=== PATIENT | male | born 2000 | race Caucasian/White ===

== ENCOUNTER 2020-03-13 16:51 | Outpatient (REF) | payer OTHER, SELFPAY | END 2020-03-13 16:52 | disposition home or self-care (01) | LOC: HO.LAB 16:51 | PROVIDERS: Visit Provider Internal Medicine | DX: Z20.828 Contact with and (suspected) exposure to other viral communicable diseases (principal) | CPT/HCPCS: C9803; U0003 ==

== ENCOUNTER 2020-03-26 14:17 | Outpatient (REF) | payer OTHER, SELFPAY | END 2020-03-26 14:18 | disposition home or self-care (01) | LOC: HO.LAB 14:17 | PROVIDERS: PCP Internal Medicine; Visit Provider Internal Medicine | DX: Z20.828 Contact with and (suspected) exposure to other viral communicable diseases (principal) | CPT/HCPCS: C9803; U0003 ==

== ENCOUNTER 2020-08-05 12:53 | Emergency (ER) | payer OTHER, SELFPAY ==
--- NOTE | 2020-08-05 | ECG_ITS ---
Test Reason : RAPID HEARTBEAT Blood Pressure : / mmHG Vent. Rate : 076 BPM Atrial Rate : 076 BPM P-R Int : 126 ms QRS Dur : 082 ms QT Int : 374 ms P-R-T Axes : 012 058 020 degrees QTc Int : 420 ms Sinus rhythm with marked sinus arrhythmia Otherwise normal ECG No previous ECGs available Referred By: Amilcar Henderson Electronically Signed By:GINGER PIERRE MD
--- NOTE | ~2020-08-05 | XR_ITS ---
EXAMINATION: XR CHEST CLINICAL INFORMATION: Chest pain. COMPARISON: None TECHNIQUE: Frontal view of the chest was obtained. FINDINGS: No significant abnormality is noted involving the heart, lungs, mediastinum, bony thorax or soft tissues. XR/XR chest 1V IMPRESSION: Unremarkable chest examination.
[2020-08-05 12:54] VITALS: BP 180/83; PULSE 85; RESP 18; TEMP 36.9; O2SAT 98; BMI 34.1
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
[2020-08-05 16:07] LABS: MANUAL DIFF FLAG NO
[2020-08-05 16:09] LABS: Basophils Percent Auto 0.3 % (0-2); Eosinophils Percent Auto 0.2 % (0-4); Hematocrit 41.1 % (42-52); Hemoglobin 14.7 g/dl (14.0-18.0); Imm Gran Abs Auto 0.04 X10*3/uL (0.00-0.03); Imm Gran Pct Auto 0.4 % (0.0-0.4); Lymphocytes Absolute Auto 2.4 X10*3/uL (1.2-4.9); Lymphocytes Percent Auto 23.1 % (20-40); Mean Corpuscular HGB Conc 35.8 g/dl (31.0-36.0); Mean Corpuscular Hemoglobin 30.8 pg (27.0-33.0); Mean Platelet Volume 10.1 fL (9.4-12.4); Monocytes Absolute Auto 0.5 X10*3/uL (0.1-1.2); Monocytes Percent Auto 4.3 % (2-11); Neutrophils Absolute Auto 7.6 X10*3/uL (2.0-8.3); Neutrophils Percent Auto 71.7 % (45-73); Platelet Count 235 X10*3/uL (160-400); Red Blood Count 4.78 X10*6/uL (4.60-5.80); Red Cell Distribution Width 11.8 % (11.0-16.0); White Blood Count 10.6 X10*3/uL (4.8-10.8)
[2020-08-05 16:35] LABS: Alanine Aminotransferase 36 U/L (0-40); Albumin Level 4.7 g/dL (3.5-5.0); Alkaline Phosphatase 77 U/L (39-117); Anion Gap 13 (12-20); Aspartate Amino Transferase 21 U/L (5-37); Bilirubin Direct 0.3 mg/dL (0.0-0.5); Bilirubin Total 0.9 mg/dL (0.0-1.0); Blood Urea Nitrogen 9 mg/dL (9-16); Calcium 9.5 mg/dL (8.4-10.2); Carbon Dioxide 28 mmol/L (22-29); Chloride 103 mmol/L (96-108); Creatinine Clr Calc Pharmacy 168.6; Estimated Glomerular Filt Rate > 60; Glucose Random 92 mg/dL (60-115); Lipase 15 U/L (8-78); Potassium 3.7 mmol/L (3.3-5.1); Sodium 140 mmol/L (135-145); Total Protein 7.5 g/dL (6.5-8.0)
[2020-08-05 16:40] LABS: Troponin-I High Sensitivity < 3.5 ng/L (<3.5-35.0)
== END 2020-08-05 18:21 | disposition home or self-care (01) ==
PROVIDERS: Emergency Provider Internal Medicine; PCP Internal Medicine
DX: R00.2 Palpitations (principal); R07.9 Chest pain, unspecified
CPT/HCPCS: 36415; 71045; 80048; 80076; 83690; 84484; 85025; 93005; 99283

== ENCOUNTER 2022-12-26 16:49 | Emergency (ER) | payer OTHER, SELFPAY ==
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
[2022-12-26 17:09] VITALS: BP 179/85; PULSE 61; RESP 16; TEMP 36.8; O2SAT 99; BMI 26.8
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
[2022-12-26 18:04] VITALS: BP 139/67; PULSE 50; RESP 19; TEMP 37.3; O2SAT 96
--- NOTE | 2022-12-26 18:24 | PC.NURSE ---
Transferred from [address] [place] [address] to ED4, patient reports has had a headache x 4 days. Denies blurry or double vision. Denies any other pain or discomfort
--- NOTE | 2022-12-26 20:22 | MHC.EDTECH ---
CALLED [facility] TRANSFER AT 719P. LEFT MESSAGE WITH PT PLACEMENT TO CALL BACK JADYN RE: PATIENT. PT PLACEMENT CALLED BACK AT 821P. SPOKE TO LUZ AND WAS GIVEN BED ASSIGNMENT. PT BEING TRANSFERRED TO [place] [address] ROOM 205. NURSE TO NURSE REPORT #[phone].
[2022-12-26 20:26] VITALS: BP 162/75; PULSE 54; RESP 16; TEMP 36.8; O2SAT 100
--- NOTE | 2022-12-26 20:28 | MHC.EDTECH ---
This tech assumed care of patient at 1900, hourly rounds and vitals completed ,BP was elevated at 162/75 RN Eli made aware.
--- NOTE | 2022-12-26 21:04 | MHC.EDTECH ---
Addendum entered by Jesenia Vergara 12/26/22 21:04: and changed into hospital attire. Original Note: Patient placed on the nuclear monitoring technician.
[2022-12-26] MEDS: dexAMETHasone sod phosphate 10 MG/ML VIAL IVPUSH (21:15)
[2022-12-26] MEDS: MannitoL 12.5 GM/50 ML VIAL IV (21:15)
== END 2022-12-26 22:00 | disposition short-term general hospital (02) ==
PROVIDERS: Emergency Provider Emergency Medicine; PCP Internal Medicine
DX: R51.9 Headache, unspecified (principal); M54.2 Cervicalgia; F12.90 Cannabis use, unspecified, uncomplicated; R11.0 Nausea
CPT/HCPCS: 70450; 96374; 96375; 99285; J1100; J2150